=== PATIENT | female | born 1965 | race Caucasian/White ===

== ENCOUNTER 2018-03-14 15:00 | Inpatient (IN) | payer BC ==
[~2018-03-14] VITALS: Ht 160 cm; Wt 96.6 kg
[2018-03-14 12:12] VITALS: BP 134/83
[2018-03-14 12:33] LABS: APPEARANCE,URINE Turbid (CLEAR); BILIRUBIN,URINE Negative (NEGATIVE); COLOR,URINE Dark Yellow (YELLOW); GLUCOSE, URINE (UA) Negative (NEGATIVE); KETONES,URINE Trace mg/dL (NEGATIVE); LEUKOCYTE ESTERASE ,URINE Small (NEGATIVE); NITRATE,URINE Positive (NEGATIVE); OCCULT BLOOD,URINE Negative (NEGATIVE); PH,URINE 6.5 (5.0-8.0); PROTEIN,URINE Negative (NEGATIVE); UROBILINOGEN,URINE 0.2 mg/dL (0.2-1.0)
[2018-03-14 13:12] LABS: BACTERIA,URINE Moderate /HPF (None Seen); RBC,URINE None Seen /HPF (0-1)
[2018-03-14 13:13] LABS: MUCUS,URINE Few LPF (None Seen); SQUAMOUS EPITHELIAL CELL,UR Few /HPF (0-2)
[~2018-03-14 15:00] MED LIST: CETI10TA57 PO; CLON0.5T12 PO; ESTRADIOL TD; ESZO3 PO; FURO-152 PO; GABA-531 PO; HYDR-3421 PO; HYDR-4060 PO; IRON PO; MAGOX PO; NICO-776 TP; OLAN2.5T29 PO; OMEP20CA10 PO; PANT40TA25 PO; POTA99TA4 PO; SERT50TA12 PO; TURMERIC CURCUMIN PO; VITAMIN D3 PO; [UNRECOGNIZED DRUG - OTHER] PO; [UNRECOGNIZED DRUG - OTHER] PO; [UNRECOGNIZED DRUG - OTHER] PO
[2018-03-17] VITALS (20 sets, daily range): BP systolic 109–136; BP diastolic 62–86
[2018-03-17] MEDS ORDERED: GENTAMICIN 80 MG/NS 100 ML PB 100 ML IV ONE (06:00)
[2018-03-17] MEDS ORDERED: LACTATED RINGERS 1000ML 1,000 ML IV ONE (08:50)
[2018-03-17] MEDS ORDERED: GENTAMICIN SULFATE 240 MG in SODIUM CHLORIDE 0.9% 100 ML IV ONE (09:00)
[2018-03-17] MEDS ORDERED: ACETAMINOPHEN EXTRA STRENGTH 500 MG TABLET ONE (09:03)
[2018-03-17] MEDS ORDERED: METOCLOPRAMIDE 10 MG/2 ML VIAL ONE (09:03)
[2018-03-17] MEDS ORDERED: OXYCODONE HCL 10 MG TAB.SR.12H PO ONE (09:04)
[2018-03-17] MEDS ORDERED: KETOROLAC TROMETHAMINE 15MG/ML ONE (09:04)
[2018-03-17] MEDS: CEFAZOLIN SODIUM 1 GM VIAL IVP ONE ×2 (09:11→10:40)
[2018-03-17] MEDS ORDERED: ONDANSETRON HCL 4 MG/2 ML VIAL ONE (09:46)
[2018-03-17] MEDS ORDERED: LIDOCAINE PF 2% 5ML ABBOJECT ONE (09:46)
[2018-03-17] MEDS ORDERED: PROPOFOL 10 MG/ML 20ML VIAL IV ONE (09:46)
[2018-03-17] MEDS ORDERED: ROCURONIUM 10MG/1ML SYR 10 MG/ML ML ONE (09:47)
[2018-03-17] MEDS ORDERED: MIDAZOLAM HCL 1 MG/ML 2ML VIAL ONE (09:47)
[2018-03-17] MEDS ORDERED: FENTANYL CITRATE PF 50 MCG/1 ML 2ML VIAL ONE ×3 (09:47→12:16)
[2018-03-17] MEDS ORDERED: ROPIVACAINE 0.5% 5MG/ML 30ML IJ ONE (09:48)
[2018-03-17] MEDS ORDERED: TRANEXAMIC ACID 1000MG/10ML IV ONE (09:51)
[2018-03-17] MEDS ORDERED: CEFAZOLIN SODIUM 1 GM VIAL ONE (09:51)
[2018-03-17] MEDS ORDERED: BUPIVACAINE/EPI/PF 0.25% 30ML VIAL IJ ONE (09:51)
[2018-03-17] MEDS ORDERED: GLYCOPYRROLATE 1 MG/5 ML SYRINGE ONE (11:59)
[2018-03-17] MEDS ORDERED: OXYCODONE HCL 5 MG TAB PO PRN (12:15)
[2018-03-17] MEDS ORDERED: ONDANSETRON HCL 4 MG/2 ML VIAL IVP PRN (12:15)
[2018-03-17] MEDS ORDERED: LIDOCAINE HCL-MPF 1% 2ML VIAL IVP PRN (12:15)
[2018-03-17] MEDS ORDERED: FERROUS FUMARATE 324 MG TABLET PO PRN (12:15)
[2018-03-17] MEDS ORDERED: POTASSIUM CHLORIDE 20 MEQ ERTAB PO PRN (12:15)
[2018-03-17] MEDS ORDERED: POTASSIUM CHLORIDE 20MEQ/100ML 100 ML IV PRN (12:15)
[2018-03-17] MEDS ORDERED: CALCIUM CARBONATE 500 MG TABLET PO PRN (12:15)
[2018-03-17] MEDS ORDERED: TRAMADOL HCL 50 MG TABLET PO PRN (12:15)
[2018-03-17] MEDS: ACETAMINOPHEN EXTRA STRENGTH 500 MG TABLET PO SCH ×2 (12:15→19:50)
[2018-03-17] MEDS ORDERED: POTASSIUM CHLORIDE 10% ELIXIR 20 MEQ/15 ML UDCUP PO PRN (12:15)
[2018-03-17] MEDS: SODIUM CHLORIDE 0.9% 1000ML 1,000 ML IV SCH ×2 (14:26→21:56)
[2018-03-17] MEDS ORDERED: FUROSEMIDE 20 MG TABLET PO PRN (15:15)
[2018-03-17] MEDS ORDERED: HYDROXYZINE HCL 25 MG TABLET PO SCH (15:15)
[2018-03-17] MEDS: KETOROLAC TROMETHAMINE 15MG/ML IV PRN ×2 (15:40→22:37)
[2018-03-17] MEDS ORDERED: ESTRADIOL 0.05 MG TD SCH (16:00)
[2018-03-17] MEDS: CEFAZOLIN SODIUM 1 GM VIAL IVP SCH (16:54)
[2018-03-17] MEDS ORDERED: CLONAZEPAM 0.5 MG TABLET ONE (19:35)
[2018-03-17] MEDS: GABAPENTIN 300 MG CAPSULE PO SCH (19:49)
[2018-03-17] MEDS: PANTOPRAZOLE SODIUM 40 MG TABLET.DR PO SCH (19:50)
[2018-03-17] MEDS: CLONAZEPAM 0.5 MG TABLET PO SCH (19:50)
[2018-03-17] MEDS: OLANZAPINE 5 MG TAB PO SCH (19:50)
[2018-03-17] MEDS: CELECOXIB 200 MG CAP PO SCH (19:50)
[2018-03-17] MEDS: OXYCODONE HCL 5 MG TAB PO PRN (19:50)
[2018-03-17] MEDS: MAGNESIUM OXIDE 400 MG TABLET PO SCH (19:50)
[2018-03-17] MEDS ORDERED: VITAMIN D3 PO SCH (21:00)
[2018-03-17] MEDS ORDERED: ASPIRIN 325 MG TABLET PO SCH (21:00)
[2018-03-17] MEDS: VIT D3 PO SCH (21:00)
[2018-03-17] MEDS: POTASSIUM 99 MG PO SCH (21:00)
[2018-03-17] MEDS: ESZOPICLONE 3 MG PO SCH (21:00)
[2018-03-18] VITALS: BP 101/54
[2018-03-18] MEDS: CEFAZOLIN SODIUM 1 GM VIAL IVP SCH (00:44)
[2018-03-18 04:00] VITALS: BP 122/72
[2018-03-18] MEDS: OXYCODONE HCL 5 MG TAB PO PRN (04:07)
[2018-03-18] MEDS: ACETAMINOPHEN EXTRA STRENGTH 500 MG TABLET PO SCH ×3 (04:08→19:43)
[2018-03-18 04:33] LABS: HEMATOCRIT 37.3 % (36-48); MEAN CORPUSCULAR HEMOGLOBIN 30.4 pg (27.0-33.0); MEAN CORPUSCULAR HGB CONC 32.5 g/dL (32.0-36.0); MEAN CORPUSCULAR VOLUME 93.5 fL (79-99); PLATELET COUNT (AUTO) 237 K/uL (130-400); RED BLOOD CELL COUNT(AUTO) 3.98 MIL/uL (4.00-5.50); RED CELL DISTRIBUTION WIDTH 14.8 % (11.0-15.5); WHITE BLOOD COUNT (AUTO) 5.6 K/uL (4.8-10.8)
[2018-03-18 04:46] LABS: CREATININE 0.7 mg/dL (0.5-1.5); POTASSIUM 4.5 mmol/L (3.5-5.1)
[2018-03-18] MEDS: KETOROLAC TROMETHAMINE 15MG/ML IV PRN (05:10)
[2018-03-18] MEDS ORDERED: NALOXONE HCL 0.4 MG/1 ML ML IVP PRN (07:00)
[2018-03-18] MEDS: HYDROMORPHONE PCA 10 MG/50 ML 50 ML IV PRN ×2 (07:59→21:20)
[2018-03-18] MEDS: SODIUM CHLORIDE 0.9% 1000ML 1,000 ML IV SCH (08:01)
[2018-03-18 08:07] VITALS: BP 131/84
[2018-03-18] MEDS: VIT D3 PO SCH ×2 (09:00→19:46)
[2018-03-18] MEDS ORDERED: PANTOPRAZOLE SODIUM 40 MG TABLET.DR PO SCH (09:00)
[2018-03-18] MEDS: POTASSIUM 99 MG PO SCH ×2 (09:00→19:45)
[2018-03-18] MEDS: NICOTINE 21 MG/ 24 HR PATCH TD SCH (10:29)
[2018-03-18] MEDS: POLYETHYLENE GLYCOL 3350 17 GM POWD.PACK PO SCH (10:29)
[2018-03-18] MEDS: MAGNESIUM OXIDE 400 MG TABLET PO SCH ×2 (10:34→19:42)
[2018-03-18] MEDS: FUROSEMIDE 20 MG TABLET PO SCH (10:35)
[2018-03-18] MEDS: CELECOXIB 200 MG CAP PO SCH ×2 (10:35→19:42)
[2018-03-18] MEDS: SERTRALINE HCL 50 MG TABLET PO SCH (10:35)
[2018-03-18] MEDS: CETIRIZINE HCL 5 MG TABLET PO SCH (10:36)
[2018-03-18] MEDS: GABAPENTIN 300 MG CAPSULE PO SCH ×3 (10:36→19:42)
[2018-03-18] MEDS: PANTOPRAZOLE SODIUM 40 MG TABLET.DR PO SCH ×2 (10:36→19:42)
[2018-03-18] MEDS: CLONAZEPAM 0.5 MG TABLET PO SCH ×3 (10:36→19:43)
[2018-03-18] MEDS: APIXABAN 2.5 MG TABLET PO SCH ×2 (10:36→19:42)
[2018-03-18 10:56] VITALS: BP 137/79
[2018-03-18] MEDS: DiphenhydrAMINE HCL 50 MG/ML VIAL IVP PRN ×2 (12:01→17:32)
[2018-03-18 16:23] VITALS: BP 129/72
[2018-03-18] MEDS: OLANZAPINE 5 MG TAB PO SCH (19:42)
[2018-03-18] MEDS: ESZOPICLONE 3 MG PO SCH (19:46)
[2018-03-18 20:00] VITALS: BP 130/80
[2018-03-19] VITALS: BP 125/71
[2018-03-19] MEDS: DiphenhydrAMINE HCL 50 MG/ML VIAL IVP PRN ×2 (01:54→08:18)
[2018-03-19] MEDS: ACETAMINOPHEN EXTRA STRENGTH 500 MG TABLET PO SCH ×2 (03:41→11:55)
[2018-03-19 04:00] VITALS: BP 133/77
[2018-03-19 07:30] VITALS: BP 118/70
[2018-03-19] MEDS: POLYETHYLENE GLYCOL 3350 17 GM POWD.PACK PO SCH (08:20)
[2018-03-19] MEDS: MAGNESIUM OXIDE 400 MG TABLET PO SCH (08:20)
[2018-03-19] MEDS: CLONAZEPAM 0.5 MG TABLET PO SCH ×2 (08:20→13:18)
[2018-03-19] MEDS: SERTRALINE HCL 50 MG TABLET PO SCH (08:20)
[2018-03-19] MEDS: CETIRIZINE HCL 5 MG TABLET PO SCH (08:20)
[2018-03-19] MEDS: CELECOXIB 200 MG CAP PO SCH (08:20)
[2018-03-19] MEDS: PANTOPRAZOLE SODIUM 40 MG TABLET.DR PO SCH (08:20)
[2018-03-19] MEDS: NICOTINE 21 MG/ 24 HR PATCH TD SCH (08:21)
[2018-03-19] MEDS: GABAPENTIN 300 MG CAPSULE PO SCH ×2 (08:21→13:18)
[2018-03-19] MEDS: APIXABAN 2.5 MG TABLET PO SCH (08:21)
[2018-03-19] MEDS: FUROSEMIDE 20 MG TABLET PO SCH (08:21)
[2018-03-19] MEDS: VIT D3 PO SCH (08:28)
[2018-03-19] MEDS: POTASSIUM 99 MG PO SCH (08:28)
[2018-03-19] MEDS: OXYCODONE HCL 5 MG TAB PO PRN (14:49)
[2018-03-19] MEDS ORDERED: HYDR-309 PO (16:04)
[2018-03-19] MEDS ORDERED: APIX2.5T PO (16:04)
[2018-03-19] MEDS ORDERED: NICO-705 TD (16:04)
[2018-03-20] MEDS ORDERED: BISACODYL 10 MG SUPP.RECT RC PRN (12:15)
== END 2018-03-19 17:30 | DRG 470 ==
LOC: EDSTATUS 15:00 → DAHIP 03-17 07:53 → 4AH 03-17 13:16
PROVIDERS: ADMIT Orthopaedic Surgery; ATTEND Orthopaedic Surgery
PROC: 0SRC0J9 Replacement of Right Knee Joint with Synthetic Substitute, Cemented, Open Approach (ICD-10-PCS; principal; 2018-03-17 10:03)
DX: M17.11 Unilateral primary osteoarthritis, right knee (principal); F41.9 Anxiety disorder, unspecified; Z96.612 Presence of left artificial shoulder joint; Z90.49 Acquired absence of other specified parts of digestive tract; Z81.1 Family history of alcohol abuse and dependence; Z83.3 Family history of diabetes mellitus; Z82.49 Family history of ischemic heart disease and other diseases of the circulatory system; Z82.61 Family history of arthritis; Z91.040 Latex allergy status; Z88.8 Allergy status to other drugs, medicaments and biological substances
CPT/HCPCS: 36415; 80048; 81001; 85027; 88305; 88311; A4218; J0690; J1170; J1200; J1580; J1885; J2001; J2250; J2405; J2704; J2765; J2795; J3010; J3490; J7030; J7120

== ENCOUNTER 2018-04-29 14:45 | Inpatient (IN) | payer BC ==
[~2018-04-29] VITALS: Ht 162.6 cm; Wt 96.2 kg
[2018-04-29 14:36] LABS: BASOPHILS % (AUTO) 0.7 % (0.0-5.0); EOSINOPHILS % (AUTO) 6.4 % (0.0-8.0); LYMPHOCYTES % (AUTO) 29.1 % (21.0-51.0); MEAN CORPUSCULAR HGB CONC 32.9 g/dL (32.0-36.0); MEAN CORPUSCULAR VOLUME 91.2 fL (79-99); MONOCYTES % (AUTO) 4.7 % (3.0-13.0); NEUTROPHILS % (AUTO) 59.1 % (40.0-77.0); PLATELET COUNT (AUTO) 287 K/uL (130-400); RED BLOOD CELL COUNT(AUTO) 4.71 MIL/uL (4.00-5.50); RED CELL DISTRIBUTION WIDTH 15.1 % (11.0-15.5); WHITE BLOOD COUNT (AUTO) 8.5 K/uL (4.8-10.8)
[2018-04-29 14:42] VITALS: BP 128/75
[~2018-04-29 14:45] MED LIST changes: -FURO-152 PO; -GABA-531 PO; -HYDR-4060 PO; -MAGOX PO; +NICO-705 TD; -NICO-776 TP; -VITAMIN D3 PO
[2018-04-29 14:47] LABS: CREATININE 0.9 mg/dL (0.5-1.5); POTASSIUM 3.7 mmol/L (3.5-5.1)
[2018-04-29 14:50] LABS: INR 0.96 (0.85-1.15); PARTIAL THROMBOPLASTIN TIME 28.9 SEC (26.3-35.5); PROTHROMBIN TIME 10.1 SEC (9.6-11.6)
[2018-04-29 15:18] LABS: APPEARANCE,URINE Clear (CLEAR); BILIRUBIN,URINE Negative (NEGATIVE); COLOR,URINE Yellow (YELLOW); GLUCOSE, URINE (UA) Negative (NEGATIVE); KETONES,URINE Negative (NEGATIVE); LEUKOCYTE ESTERASE ,URINE Negative (NEGATIVE); NITRATE,URINE Negative (NEGATIVE); OCCULT BLOOD,URINE Negative (NEGATIVE); PROTEIN,URINE Negative (NEGATIVE); UROBILINOGEN,URINE 0.2 mg/dL (0.2-1.0)
[2018-04-29] MEDS ORDERED: ESTR1PAT87 TD (15:32)
[2018-04-29] MEDS ORDERED: trubiotics PO (15:32)
[2018-04-29] MEDS ORDERED: CHOL50004 PO (15:32)
[2018-04-29] MEDS ORDERED: SUCR1TAB2 PO (15:32)
[2018-04-30] VITALS (22 sets, daily range): BP systolic 121–156; BP diastolic 58–95
[2018-04-30] MEDS ORDERED: LACTATED RINGERS 1000ML 1,000 ML IV ONE (06:56)
[2018-04-30] MEDS ORDERED: CEFAZOLIN SODIUM 1 GM VIAL ONE (06:57)
[2018-04-30] MEDS: CEFAZOLIN SODIUM 1 GM VIAL IVP ONE ×2 (07:09→08:25)
[2018-04-30] MEDS ORDERED: HYDROMORPHONE 1 MG/1 ML AMP ONE ×3 (07:33→11:43)
[2018-04-30] MEDS ORDERED: PHENYLEPHRINE HCL 10 MG/ML 1ML VIAL IV ONE (07:42)
[2018-04-30] MEDS ORDERED: SUCCINYLCHOLINE CHLORIDE 20 MG/ML 10 ML VIAL ONE (07:42)
[2018-04-30] MEDS ORDERED: ONDANSETRON HCL 4 MG/2 ML VIAL ONE (07:43)
[2018-04-30] MEDS ORDERED: MIDAZOLAM HCL 1 MG/ML 2ML VIAL ONE ×2 (07:43→11:02)
[2018-04-30] MEDS ORDERED: PROPOFOL 10 MG/ML 20ML VIAL IV ONE (07:43)
[2018-04-30] MEDS ORDERED: DEXAMETHASONE SOD PHOSPHATE 4 MG/ML 1ML VIAL ONE (07:43)
[2018-04-30] MEDS ORDERED: FENTANYL CITRATE PF 50 MCG/1 ML 2ML VIAL ONE ×3 (07:43→10:48)
[2018-04-30] MEDS ORDERED: DEXAMETHASONE SOD PHOSPHATE 10MG/ML 1ML VIAL ONE (07:44)
[2018-04-30] MEDS ORDERED: LIDOCAINE PF 2% 5ML ABBOJECT ONE (07:45)
[2018-04-30] MEDS ORDERED: ROCURONIUM 10MG/1ML SYR 10 MG/ML ML ONE (07:46)
[2018-04-30] MEDS ORDERED: ROPIVACAINE 0.5% 5MG/ML 30ML IJ ONE (07:58)
[2018-04-30] MEDS ORDERED: SUCCINYLCHOLINE 200MG/10ML SYR ONE (08:06)
[2018-04-30] MEDS ORDERED: TRANEXAMIC ACID 1000MG/10ML IV ONE (08:09)
[2018-04-30] MEDS ORDERED: BUPIVACAINE/EPI/PF 0.25% 30ML VIAL IJ ONE (08:09)
[2018-04-30] MEDS ORDERED: CEFAZOLIN SODIUM 1 GM VIAL IRRIG ONE (09:11)
[2018-04-30] MEDS ORDERED: NEOSTIGMINE 5MG/5ML SYR IV ONE (10:08)
[2018-04-30] MEDS ORDERED: GLYCOPYRROLATE 1 MG/5 ML SYRINGE ONE (10:08)
[2018-04-30] MEDS ORDERED: POTASSIUM CHLORIDE 10% ELIXIR 20 MEQ/15 ML UDCUP PO PRN (10:30)
[2018-04-30] MEDS ORDERED: POTASSIUM CHLORIDE 20MEQ/100ML 100 ML IV PRN (10:30)
[2018-04-30] MEDS: ACETAMINOPHEN EXTRA STRENGTH 500 MG TABLET PO SCH ×2 (10:30→17:06)
[2018-04-30] MEDS ORDERED: FERROUS FUMARATE 324 MG TABLET PO PRN (10:30)
[2018-04-30] MEDS ORDERED: LIDOCAINE HCL-MPF 1% 2ML VIAL IVP PRN (10:30)
[2018-04-30] MEDS ORDERED: CALCIUM CARBONATE 500 MG TABLET PO PRN (10:30)
[2018-04-30] MEDS ORDERED: ONDANSETRON HCL 4 MG/2 ML VIAL IVP PRN (10:30)
[2018-04-30] MEDS ORDERED: OXYCODONE HCL 5 MG TAB PO PRN (10:30)
[2018-04-30] MEDS ORDERED: PROMETHAZINE HCL 25 MG/ML 1ML AMPULE IM ONE (10:57)
[2018-04-30] MEDS ORDERED: MEPERIDINE-PF 25 MG/ML SYG ONE (10:57)
[2018-04-30] MEDS ORDERED: METOCLOPRAMIDE 10 MG/2 ML VIAL ONE (11:14)
[2018-04-30] MEDS ORDERED: NALOXONE HCL 0.4 MG/1 ML ML IVP PRN (12:00)
[2018-04-30] MEDS: CEFAZOLIN SODIUM 1 GM VIAL IVP SCH ×2 (17:04→23:53)
[2018-04-30] MEDS ORDERED: SUCRALFATE 1 GM TABLET PO PRN (19:30)
[2018-04-30] MEDS ORDERED: HYDROXYZINE HCL 25 MG TABLET PO SCH (19:30)
[2018-04-30] MEDS: SODIUM CHLORIDE 0.9% 1000ML 1,000 ML IV SCH ×2 (20:20→21:32)
[2018-04-30] MEDS: CLONAZEPAM 0.5 MG TABLET PO SCH (20:35)
[2018-04-30] MEDS: CELECOXIB 200 MG CAP PO SCH (20:35)
[2018-04-30] MEDS: ASPIRIN 325 MG TABLET PO SCH (20:35)
[2018-04-30] MEDS: FERROUS SULFATE 325 MG TABLET.DR PO SCH (20:36)
[2018-04-30] MEDS: PANTOPRAZOLE SODIUM 40 MG TABLET.DR PO SCH (20:36)
[2018-04-30] MEDS: OLANZAPINE 5 MG TAB PO SCH (20:36)
[2018-04-30] MEDS: PREGABALIN 25 MG CAP PO SCH (20:36)
[2018-04-30] MEDS: CHOLECALCIFEROL 5000 UNIT PO SCH (21:00)
[2018-04-30] MEDS: POTASSIUM 99 MG PO SCH (21:00)
[2018-04-30] MEDS: KETOROLAC TROMETHAMINE 15MG/ML IV PRN (21:36)
[2018-05-01] MEDS: ACETAMINOPHEN EXTRA STRENGTH 500 MG TABLET PO SCH ×3 (01:33→18:53)
[2018-05-01] MEDS: SODIUM CHLORIDE 0.9% 1000ML 1,000 ML IV SCH (02:14)
[2018-05-01] MEDS: HYDROMORPHONE PCA 10MG/50 ML ( 0.2 MG/ML ) IV PRN ×2 (02:17→12:59)
[2018-05-01] MEDS: KETOROLAC TROMETHAMINE 15MG/ML IV PRN ×4 (02:41→19:44)
[2018-05-01 04:49] VITALS: BP 113/73
[2018-05-01 04:50] LABS: MEAN CORPUSCULAR HEMOGLOBIN 30.6 pg (27.0-33.0); MEAN CORPUSCULAR HGB CONC 33.7 g/dL (32.0-36.0); MEAN CORPUSCULAR VOLUME 90.8 fL (79-99); PLATELET COUNT (AUTO) 308 K/uL (130-400); RED BLOOD CELL COUNT(AUTO) 3.86 MIL/uL (4.00-5.50); RED CELL DISTRIBUTION WIDTH 15.4 % (11.0-15.5); WHITE BLOOD COUNT (AUTO) 13.2 K/uL (4.8-10.8)
[2018-05-01 04:58] LABS: CREATININE 0.6 mg/dL (0.5-1.5); POTASSIUM 3.6 mmol/L (3.5-5.1)
[2018-05-01 08:03] VITALS: BP 138/83
[2018-05-01] MEDS: ASPIRIN 325 MG TABLET PO SCH ×2 (08:42→19:42)
[2018-05-01] MEDS: FERROUS SULFATE 325 MG TABLET.DR PO SCH ×2 (08:42→19:42)
[2018-05-01] MEDS: PANTOPRAZOLE SODIUM 40 MG TABLET.DR PO SCH ×2 (08:42→19:42)
[2018-05-01] MEDS: PREGABALIN 25 MG CAP PO SCH ×2 (08:42→19:42)
[2018-05-01] MEDS: POLYETHYLENE GLYCOL 3350 17 GM POWD.PACK PO SCH (08:42)
[2018-05-01] MEDS: CETIRIZINE HCL 5 MG TABLET PO SCH (08:42)
[2018-05-01] MEDS: CELECOXIB 200 MG CAP PO SCH ×2 (08:42→19:42)
[2018-05-01] MEDS: SERTRALINE HCL 50 MG TABLET PO SCH (08:43)
[2018-05-01] MEDS: NICOTINE 21 MG/ 24 HR PATCH TD SCH (08:43)
[2018-05-01] MEDS: POTASSIUM CHLORIDE 20 MEQ ERTAB PO PRN ×2 (08:43→11:23)
[2018-05-01] MEDS: POTASSIUM 99 MG PO SCH ×2 (08:50→21:00)
[2018-05-01] MEDS: CHOLECALCIFEROL 5000 UNIT PO SCH ×2 (08:50→21:00)
[2018-05-01] MEDS: CLONAZEPAM 0.5 MG TABLET PO SCH ×3 (08:53→21:40)
[2018-05-01] MEDS ORDERED: NON-FORMULARY MEDICATION 1 EACH (Omeprazole 20 MG) PO SCH (09:00)
[2018-05-01] MEDS ORDERED: ESTRADIOL 0.05 MG TP SCH (09:00)
[2018-05-01 11:10] VITALS: BP 127/76
[2018-05-01 16:02] VITALS: BP 117/70
[2018-05-01] MEDS: DiphenhydrAMINE HCL 50 MG/ML VIAL IVP PRN ×2 (16:12→22:57)
[2018-05-01] MEDS: OLANZAPINE 5 MG TAB PO SCH (19:42)
[2018-05-01] MEDS: OXYCODONE HCL 5 MG TAB PO PRN (20:06)
[2018-05-01 20:44] VITALS: BP 122/74
[2018-05-01] MEDS: TRAMADOL HCL 50 MG TABLET PO PRN (22:57)
[2018-05-02] MEDS: OXYCODONE HCL 5 MG TAB PO PRN ×5 (00:09→17:52)
[2018-05-02 00:24] VITALS: BP 117/78
[2018-05-02] MEDS: KETOROLAC TROMETHAMINE 15MG/ML IV PRN ×3 (01:38→15:30)
[2018-05-02] MEDS: ACETAMINOPHEN EXTRA STRENGTH 500 MG TABLET PO SCH ×3 (01:38→17:53)
[2018-05-02] MEDS: HYDROMORPHONE PCA 10MG/50 ML ( 0.2 MG/ML ) IV PRN (04:29)
[2018-05-02 04:31] VITALS: BP 131/69
[2018-05-02] MEDS: TRAMADOL HCL 50 MG TABLET PO PRN ×2 (05:53→20:30)
[2018-05-02] MEDS: DiphenhydrAMINE HCL 50 MG/ML VIAL IVP PRN ×2 (05:57→15:35)
[2018-05-02 07:34] VITALS: BP 120/72
[2018-05-02] MEDS: ASPIRIN 325 MG TABLET PO SCH (07:46)
[2018-05-02] MEDS: CELECOXIB 200 MG CAP PO SCH (07:46)
[2018-05-02] MEDS: FERROUS SULFATE 325 MG TABLET.DR PO SCH (07:46)
[2018-05-02] MEDS: CLONAZEPAM 0.5 MG TABLET PO SCH ×2 (07:46→14:00)
[2018-05-02] MEDS: SERTRALINE HCL 50 MG TABLET PO SCH (07:47)
[2018-05-02] MEDS: PREGABALIN 25 MG CAP PO SCH (07:47)
[2018-05-02] MEDS: CETIRIZINE HCL 5 MG TABLET PO SCH (07:47)
[2018-05-02] MEDS: POLYETHYLENE GLYCOL 3350 17 GM POWD.PACK PO SCH (07:47)
[2018-05-02] MEDS: PANTOPRAZOLE SODIUM 40 MG TABLET.DR PO SCH (07:47)
[2018-05-02] MEDS: NICOTINE 21 MG/ 24 HR PATCH TD SCH (07:48)
[2018-05-02] MEDS: CHOLECALCIFEROL 5000 UNIT PO SCH (08:38)
[2018-05-02] MEDS: POTASSIUM 99 MG PO SCH (08:38)
[2018-05-02 11:02] VITALS: BP 120/55
[2018-05-02 16:36] VITALS: BP 138/74
[2018-05-02] MEDS ORDERED: OXYC5 PO (18:35)
[2018-05-02] MEDS ORDERED: ASPI-1012 PO (18:35)
[2018-05-03] MEDS ORDERED: BISACODYL 10 MG SUPP.RECT RC PRN (10:30)
== END 2018-05-02 20:30 | DRG 470 ==
LOC: DAHIP 04-30 06:20 → 4AH 04-30 11:42
PROVIDERS: ADMIT Orthopaedic Surgery; ATTEND Orthopaedic Surgery
PROC: 0SRD0J9 Replacement of Left Knee Joint with Synthetic Substitute, Cemented, Open Approach (ICD-10-PCS; principal; 2018-04-30 08:16)
DX: M17.12 Unilateral primary osteoarthritis, left knee (principal); F41.9 Anxiety disorder, unspecified; E66.01 Morbid (severe) obesity due to excess calories; Z68.36 Body mass index [BMI] 36.0-36.9, adult; Z88.8 Allergy status to other drugs, medicaments and biological substances; Z91.040 Latex allergy status; Z90.710 Acquired absence of both cervix and uterus
CPT/HCPCS: 36415; 80048; 81003; 84132; 85025; 85027; 85610; 85730; J0330; J0690; J1100; J1170; J1200; J1885; J2001; J2175; J2250; J2370; J2405; J2550; J2704; J2710; J2765; J2795; J3010; J3490; J7120

== ENCOUNTER 2020-02-10 09:33 | Day surgery (SDC) | payer BC ==
[2020-02-09 13:01] LABS: BASOPHILS % (AUTO) 0.5 % (0.0-5.0); EOSINOPHILS % (AUTO) 6.1 % (0.0-8.0); HEMATOCRIT 38.7 % (36-48); LYMPHOCYTES % (AUTO) 44.5 % (21.0-51.0); MEAN CORPUSCULAR HEMOGLOBIN 30.4 pg (27.0-33.0); MEAN CORPUSCULAR HGB CONC 32.6 g/dL (32.0-36.0); MEAN CORPUSCULAR VOLUME 93.3 fL (79-99); MONOCYTES % (AUTO) 7.5 % (3.0-13.0); NEUTROPHILS % (AUTO) 41.2 % (40.0-77.0); PLATELET COUNT (AUTO) 322 K/uL (130-400); RED BLOOD CELL COUNT(AUTO) 4.15 MIL/uL (4.00-5.50); RED CELL DISTRIBUTION WIDTH 13.7 % (11.0-15.5); WHITE BLOOD COUNT (AUTO) 9.2 K/uL (4.8-10.8)
[2020-02-09 13:14] LABS: ALBUMIN 3.9 g/dL (3.5-5.0); BILIRUBIN,TOTAL 0.2 mg/dL (0.2-1.0); CREATININE 0.7 mg/dL (0.5-1.5)
[2020-02-09 13:20] LABS: INR 0.93 (0.85-1.15); PARTIAL THROMBOPLASTIN TIME 26.9 SEC (26.3-35.5); PROTHROMBIN TIME 10.1 SEC (9.6-11.6)
[2020-02-09 15:59] VITALS: BP 98/57
[~2020-02-10] VITALS: Ht 160 cm; Wt 80.6 kg
[2020-02-10] VITALS (16 sets, daily range): BP systolic 82–136; BP diastolic 46–77
[~2020-02-10 09:33] MED LIST changes: +ACET-3194 PO; +AZELASTINE HCL NASAL; +BUSP10TA3 PO; -CLON0.5T12 PO; +CLON0.5T4 PO; +CYCL5TAB PO; +ESTR1PAT87 TD; -ESTRADIOL TD; +FLUTICASONE PROPIO NASAL; +GABA300S PO; +IBUP100O20 PO; -IRON PO; +METO-408 PO; -NICO-705 TD; -OLAN2.5T29 PO; +OLAN5TAB27 PO; -OMEP20CA10 PO; +OMEP20CA12 PO; -PANT40TA25 PO; -POTA99TA4 PO; +SERT100T12 PO; -SERT50TA12 PO; +TRAM100T40 PO; -TURMERIC CURCUMIN PO; -[UNRECOGNIZED DRUG - OTHER] PO; -[UNRECOGNIZED DRUG - OTHER] PO; -[UNRECOGNIZED DRUG - OTHER] PO; +folic acid PO
[2020-02-10] MEDS ORDERED: BUPIVACAINE/PF 0.5% 30ML VIAL ONE (10:03)
[2020-02-10] MEDS ORDERED: GABA300C PO (10:13)
[2020-02-10] MEDS ORDERED: LACTATED RINGERS 1000ML 1,000 ML IV ONE (10:14)
[2020-02-10] MEDS ORDERED: PROPOFOL 10 MG/ML 20ML VIAL IV ONE ×2 (11:07→12:20)
[2020-02-10] MEDS ORDERED: DEXAMETHASONE SOD PHOSPHATE 10MG/ML 1ML VIAL ONE (11:07)
[2020-02-10] MEDS ORDERED: ONDANSETRON HCL 4 MG/2 ML VIAL ONE (11:07)
[2020-02-10] MEDS ORDERED: MIDAZOLAM HCL 1 MG/ML 2ML VIAL ONE ×2 (11:07→13:43)
[2020-02-10] MEDS ORDERED: LIDOCAINE PF 2% 5ML ABBOJECT ONE (11:07)
[2020-02-10] MEDS ORDERED: FENTANYL CITRATE PF 50 MCG/1 ML 2ML VIAL ONE (11:08)
[2020-02-10] MEDS ORDERED: ROCURONIUM 10MG/1ML SYR 10 MG/ML ML ONE (11:08)
[2020-02-10] MEDS ORDERED: GLYCOPYRROLATE 1 MG/5 ML SYRINGE ONE (13:18)
[2020-02-10] MEDS ORDERED: NEOSTIGMINE 5MG/5ML SYR IV ONE (13:18)
[2020-02-10] MEDS ORDERED: MEPERIDINE-PF 25 MG/ML SYG ONE ×2 (13:37→13:52)
[2020-02-10] MEDS ORDERED: KETOROLAC TROMETHAMINE 30MG/ML ONE (14:04)
[2020-02-10] MEDS ORDERED: ACETAMINOPHEN-CODEINE 300/30MG TAB ONE (14:44)
== END 2020-02-10 15:30 | disposition home or self-care (01) ==
LOC: DAH 09:33
PROVIDERS: ATTEND Student in an Organized Health Care Education/Training Program
DX: K40.90 Unilateral inguinal hernia, without obstruction or gangrene, not specified as recurrent (principal); K43.2 Incisional hernia without obstruction or gangrene; I10 Essential (primary) hypertension; J44.9 Chronic obstructive pulmonary disease, unspecified; M19.90 Unspecified osteoarthritis, unspecified site; E66.9 Obesity, unspecified; E78.2 Mixed hyperlipidemia; F32.9 Major depressive disorder, single episode, unspecified; F41.0 Panic disorder [episodic paroxysmal anxiety]; D50.9 Iron deficiency anemia, unspecified; K21.9 Gastro-esophageal reflux disease without esophagitis; Z98.890 Other specified postprocedural states; Z98.84 Bariatric surgery status; Z90.49 Acquired absence of other specified parts of digestive tract; Z11.59 Encounter for screening for other viral diseases; Z79.01 Long term (current) use of anticoagulants; Z98.891 History of uterine scar from previous surgery; Z87.891 Personal history of nicotine dependence; Z90.721 Acquired absence of ovaries, unilateral; Z88.8 Allergy status to other drugs, medicaments and biological substances; Z88.1 Allergy status to other antibiotic agents; Z91.040 Latex allergy status; Z68.30 Body mass index [BMI] 30.0-30.9, adult; Z83.3 Family history of diabetes mellitus; Z82.49 Family history of ischemic heart disease and other diseases of the circulatory system; Z80.9 Family history of malignant neoplasm, unspecified
CPT/HCPCS: 36415; 49505; 49560; 49568; 80053; 85025; 85610; 85730; 87426; A4215; A4221; A4222; A4223; A4344; A4606; A4649; A4663; A4930 ×2; A5113; A6260; C1765; C1781 ×2; J1100; J1885; J2001; J2175 ×2; J2250 ×2; J2405; J2704 ×2; J2710; J3010; J3490 ×2; J7030; J7120; U0003

== ENCOUNTER 2020-02-19 08:08 | Emergency (ER) | payer BC ==
[~2020-02-19 08:08] MED LIST changes: -ACET-3194 PO; -FLUTICASONE PROPIO NASAL; +GABA300C PO; -GABA300S PO; -HYDR-3421 PO; -IBUP100O20 PO
[2020-02-19] MEDS ORDERED: ZIPRASIDONE MESYLATE 20 MG/VIAL IM ONE ×2 (08:14→13:56)
[2020-02-19] MEDS ORDERED: LORAZEPAM 2 MG/ML 1 ML VIAL ONE ×2 (08:14→13:57)
[2020-02-19 09:22] LABS: BASOPHILS % (AUTO) 0.7 % (0.0-5.0); EOSINOPHILS % (AUTO) 7.2 % (0.0-8.0); HEMATOCRIT 37.1 % (36-48); LYMPHOCYTES % (AUTO) 24.6 % (21.0-51.0); MEAN CORPUSCULAR HEMOGLOBIN 31.1 pg (27.0-33.0); MEAN CORPUSCULAR HGB CONC 34.5 g/dL (32.0-36.0); MONOCYTES % (AUTO) 6.5 % (3.0-13.0); NEUTROPHILS % (AUTO) 60.6 % (40.0-77.0); PLATELET COUNT (AUTO) 382 K/uL (130-400); RED BLOOD CELL COUNT(AUTO) 4.12 MIL/uL (4.00-5.50); RED CELL DISTRIBUTION WIDTH 13.6 % (11.0-15.5); WHITE BLOOD COUNT (AUTO) 10.3 K/uL (4.8-10.8)
[2020-02-19 09:42] LABS: INR 0.92 (0.85-1.15); PARTIAL THROMBOPLASTIN TIME 26.5 SEC (26.3-35.5)
[2020-02-19 10:08] LABS: CARBON DIOXIDE 23 mmol/L (21-32); CHLORIDE 105 mmol/L (101-111); CREATININE 0.5 mg/dL (0.5-1.5); GLOMERULAR FILTR. RATE CALC 136 mL/min (>60); GLUCOSE,RANDOM 80 mg/dL (70-105); POTASSIUM 3.5 mmol/L (3.5-5.1); SODIUM SERUM 139 mmol/L (136-145); UREA NITROGEN, BLOOD 13 mg/dL (7-18)
[2020-02-19 10:12] LABS: ALANINE AMINOTRANSFERASE 40 U/L (12-78); ALBUMIN 3.3 g/dL (3.5-5.0); ALCOHOL, BLOOD 139 mg/dL (0-10); ASPARTATE AMINOTRANSFERASE 47 U/L (10-37); BILIRUBIN,TOTAL 0.3 mg/dL (0.2-1.0); SALICYLATE 4.9 mg/dL (2.8-20.0); TOTAL PROTEIN, SERUM 6.9 g/dL (6.0-8.3)
[2020-02-19 10:19] LABS: APPEARANCE,URINE CLEAR (CLEAR); BILIRUBIN,URINE NEGATIVE (NEGATIVE); COLOR,URINE YELLOW (YELLOW); GLUCOSE, URINE (UA) NEGATIVE (NEGATIVE); KETONES,URINE NEGATIVE (NEGATIVE); LEUKOCYTE ESTERASE ,URINE NEGATIVE (NEGATIVE); NITRATE,URINE NEGATIVE (NEGATIVE); OCCULT BLOOD,URINE NEGATIVE (NEGATIVE); PH,URINE 5.5 (5.0-8.0); PROTEIN,URINE NEGATIVE (NEGATIVE); UROBILINOGEN,URINE 0.2 mg/dL (0.2-1.0)
[2020-02-19 10:19] LABS: ACETAMINOPHEN < 1 mcg/mL (10-30)
[2020-02-19 10:26] LABS: HCG,QUAL RESULT NEGATIVE (NEGATIVE)
[2020-02-19 10:27] LABS: AMPHET/METH SCREEN,URINE NEGATIVE (NEGATIVE); BARBITURATE SCREEN, URINE NEGATIVE (NEGATIVE); BENZODIAZEPINES SCREEN,URINE POSITIVE (NEGATIVE); CANNABINOID SCREEN,URINE NEGATIVE (NEGATIVE); COCAINE SCREEN,URINE NEGATIVE (NEGATIVE); OPIATE SCREEN,URINE POSITIVE (NEGATIVE); PHENCYCLIDINE SCREEN,URINE NEGATIVE (NEGATIVE)
[2020-02-19] MEDS ORDERED: ZOSYN 3.375GM+NS 50ML 50 ML IV ONE (10:57)
[2020-02-19] MEDS ORDERED: SODIUM CHLORIDE 0.9% 1000ML 1,000 ML IV ONE (10:57)
[2020-02-19] MEDS ORDERED: ZIPRASIDONE MESYLATE 20 MG/VIAL IM SCH (14:45)
== END 2020-02-19 18:16 | disposition home or self-care (01) ==
LOC: EDH 08:08
DX: F32.89 Other specified depressive episodes (principal); F10.129 Alcohol abuse with intoxication, unspecified; T81.49XA Infection following a procedure, other surgical site, initial encounter; F41.9 Anxiety disorder, unspecified; M19.90 Unspecified osteoarthritis, unspecified site; Z91.040 Latex allergy status; Z88.2 Allergy status to sulfonamides
CPT/HCPCS: 36415; 74176; 80053; 80305; 81003; 81025; 83690; 85025; 85610; 85730; 87040 ×2; 96365; 96366; 96372 ×3; 99285; G0481; J2060 ×2; J2543; J3486 ×2; J7030

== ENCOUNTER → 2020-08-31 | Outpatient (CLI) | payer BC ==
[~2020-08-31] MED LIST changes: +SERT-440 PO; -SERT100T12 PO
== END | disposition home or self-care (01) ==
LOC: RAH 10:00
PROVIDERS: ATTEND Orthopaedic Surgery
DX: M54.12 Radiculopathy, cervical region (principal)
CPT/HCPCS: 72141

== ENCOUNTER → 2021-12-25 | Outpatient (CLI) | payer BC ==
[~2021-12-25] VITALS: Ht 162.6 cm; Wt 88.5 kg
[~2021-12-25] MED LIST changes: -OLAN5TAB27 PO; +OLAN5TAB76 PO; +REGADENOSON 0.4 MG/5 ML PF SYG IVP SCH
== END | disposition home or self-care (01) ==
LOC: SHCH 09:38
PROVIDERS: ATTEND Internal Medicine Cardiovascular Disease
DX: R07.9 Chest pain, unspecified (principal)
CPT/HCPCS: 78452; 93017; 96374; A9500 ×2; J2785

== ENCOUNTER → 2023-02-28 | Outpatient (CLI) | payer BC ==
[~2023-02-28] MED LIST changes: -REGADENOSON 0.4 MG/5 ML PF SYG IVP SCH
== END | disposition home or self-care (01) ==
LOC: RAH 12:07
PROVIDERS: ATTEND Student in an Organized Health Care Education/Training Program
DX: M16.11 Unilateral primary osteoarthritis, right hip (principal); M87.051 Idiopathic aseptic necrosis of right femur
CPT/HCPCS: 73721